=== PATIENT | male | born 1990 | race Caucasian/White ===

== ENCOUNTER 2016-07-26 21:33 | Emergency (ER) | payer SELFPAY ==
[~2016-07-26] VITALS: Ht 188 cm; Wt 123.7 kg
[2016-07-26 21:38] VITALS: Ht 188 cm; Wt 123.7 kg
--- NOTE | 2016-07-26 21:57 | EMERGENCY ROOM VISIT NOTE ---
ED Visit Note First contact with patient: 21:45 CHIEF COMPLAINT: Tick bite HISTORY OF PRESENT ILLNESS: This 26-year-old male patient presents to the emergency department ambulatory after they noticed a tick embedded in the left thigh today. The patient did try to remove it. He believes that some of it is still in his leg. It had been on for a couple days. The patient was in the [place] recently. The patient denies any rashes, fevers, chills, or lightheadedness. The patient denies joint tenderness. REVIEW OF SYSTEMS: A 6 system review of systems was completed with positives and pertinent negatives listed in the HPI. ALLERGIES: No known drug allergies MEDICATIONS: None PMH: None SOCIAL HISTORY: The patient lives locally PHYSICAL EXAM: Vital Signs: Reviewed Nurse's notes, vital signs stable. GENERAL : This is a 26-year-old male, in no acute distress, well-developed, well- nourished. SKIN: There is no tick present. There is a small zone of inflammation and ecchymosis around the spot where the tick was. The patient does have multiple small pustules with erythema over the extremities which he states is not new for him. He states that this was present long before the tick. NEUROLOGICAL: Alert and oriented to person place and time, cooperative. Sensory and motor functions grossly intact. ED COURSE: I examined the patient. The tick was already gone. I did not note any tick parts. The patient was given doxycycline 200 mg p.o. for prophylaxis. The patient does have a rash to the lower extremities which has the appearance of possible flea bites or bug bites. The patient states that those lesions have been there for quite some time and are not new for him. The patient was discharged home in good condition. DISCHARGE INSTRUCTIONS & TREATMENT: Watch the area for signs of infection. Keep bacitracin on it for 2 days. Follow up with family doctor if he develops symptoms of a target rash, fever, chills, lightheadedness, or joint pain. Problem List Medical Problems: (1) Broken tooth Status: Resolved (2) Dentalgia Status: Resolved Current/Historical Medications No Active Prescriptions or Reported Meds Allergies Coded Allergies: No Known Allergies (Verified , 07/26/16) Vital Signs Date Time Temp Pulse Resp B/P Pulse Ox O2 Delivery O2 Flow Rate FiO2 07/26/16 21:38 37.0 74 18 136/85 98 Room Air Medications Administered Medications (Trade) Dose Ordered Sig/Micaela Route Start Time Stop Time Status Last Admin Dose Admin Doxycycline Hyclate (Vibramycin Cap) 200 mg ONE ONCE PO 07/26/16 22:00 07/26/16 22:01 DC 07/26/16 22:10 200 MG Departure Information Impression Primary Impression: Tick bite Dispostion Home / Self-Care Condition GOOD Prescriptions No Active Prescriptions or Reported Meds Referrals No Doctor, Assigned (PCP) Patient Instructions Bites Tick, ED Facts Tick, My [facility] Additional Instructions Watch the area for signs of infection. Keep bacitracin on it for 2 days. Follow up with family doctor if he develops symptoms of a target rash, fever, chills, lightheadedness, or joint pain.
[2016-07-26] MEDS ORDERED: DOXYCYCLINE HYCLATE 100 MG CAP PO ONE (22:00)
[2016-07-26 22:29] VITALS: BP 136/85; PULSE 74; TEMP 37; O2SAT 98
== END 2016-07-26 22:20 | disposition home or self-care (01) ==
LOC: C.EDB 21:35 → C.EDD 22:20
DX: S70.362A Insect bite (nonvenomous), left thigh, initial encounter (principal); W57.XXXA Bitten or stung by nonvenomous insect and other nonvenomous arthropods, initial encounter

== ENCOUNTER 2016-12-06 21:25 | Emergency (ER) | payer OTHER ==
[~2016-12-06] VITALS: Ht 185.4 cm; Wt 110.0 kg
[2016-12-06 21:36] VITALS: TEMP 37.1; Ht 185.4 cm; Wt 110.0 kg
[2016-12-06] MEDS ORDERED: ONDANSETRON INJ 2 MG/ML 2 ML VIAL IV STA (22:01)
[2016-12-06] MEDS ORDERED: DIPHTHERIA/TETANUS/PERTUSSIS 0.5 ML SYR/VIAL IM. ONE (22:15)
[2016-12-06] MEDS ORDERED: MoRPHine SULFATE 4 MG/ML 1 ML CARP\\VIAL IV ONE (22:15)
[2016-12-06] MEDS ORDERED: SODIUM CHLORIDE 0.9% 1000ML 1,000 ML IV ONE (22:15)
[2016-12-06] MEDS ORDERED: OPTIRAY 320 IV PRN (22:15)
[2016-12-06 22:37] LABS: BASO % 0.3 %; BASO ABS # 0.02 K/uL (0-0.2); COMPLETE YES; EOS % 1.8 %; HEMATOCRIT 44.7 % (42-52); IG% 0.1 %; LYMPH % 27.6 %; LYMPH ABS # 2.17 K/uL (1.2-3.4); MEAN CELL VOLUME 88.7 fL (80-100); MEAN CORPUSCULAR HEMOGLOBIN 30.2 pg (25-34); MEAN PLATELET VOLUME 10.1 fL (7.4-10.4); MONO % 11.3 %; NEUT % 58.9 %; PLATELET COUNT 265 K/uL (130-400); RED BLOOD COUNT 5.04 M/uL (4.7-6.1); WHITE BLOOD COUNT 7.85 K/uL (4.8-10.8)
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
[2016-12-06 22:48] LABS: PARTIAL THROMBOPLASTIN RATIO 1.2; PROTHROMBIN TIME (PATIENT) 10.8 SECONDS (9.0-12.0)
[2016-12-06 22:53] LABS: BUN/CREATININE RATIO 14.8 (10-20); CALCIUM 9.9 mg/dl (8.5-10.1); CREATININE 0.86 mg/dl (0.60-1.40); POTASSIUM 3.8 mmol/L (3.5-5.1)
[2016-12-06 22:56] LABS: ALB/GLOB RATIO 1.1 (0.9-2)
[2016-12-07] MEDS ORDERED: NORCO 5/325MG HOME PACK PO ONE (01:15)
[2016-12-07] MEDS ORDERED: HYDR-5688 PO (01:17)
[2016-12-07 01:31] VITALS: BP 123/85; PULSE 97; O2SAT 98
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
== END 2016-12-07 02:05 | disposition home or self-care (01) ==
LOC: C.EDB 21:27
DX: S89.92XA Unspecified injury of left lower leg, initial encounter (principal); V20.4XXA Motorcycle driver injured in collision with pedestrian or animal in traffic accident, initial encounter; Y92.488 Other paved roadways as the place of occurrence of the external cause

== ENCOUNTER 2017-08-09 08:51 | Emergency (ER) | payer OTHER ==
[~2017-08-09] VITALS: Ht 185.4 cm; Wt 125.1 kg
[2017-08-09 08:55] VITALS: TEMP 36.4; Ht 185.4 cm; Wt 125.1 kg
[2017-08-09] MEDS ORDERED: CIPROFLOXACIN HCL 0.3% OP SOLN 2.5 ML BTL OT STA (09:09)
[2017-08-09] MEDS ORDERED: CPROT OP (09:20)
[2017-08-09 09:27] VITALS: BP 129/89; PULSE 69; O2SAT 97
--- NOTE | 2017-08-09 15:10 | EMERGENCY ROOM VISIT NOTE ---
History First contact with patient: 08:59 Chief Complaint: EAR PAIN Stated Complaint: EAR SWOLLEN, CAN'T HEAR, PAIN ALL OVER History of Present Illness The patient is a 27 year old male who presents to the Emergency Room with complaints of left ear pain, swelling and decreased hearing acuity since Sunday. The patient denies any recent swimming, runny nose, congestion, sore throat, fever or chills. Patient does occasionally use Q-tips. He currently rates his discomfort a 6 out of 10. Review of Systems 10 system review was performed and was negative except for pertinent positives and negatives as indicated in history of present illness Past Medical/Surgical History Medical Problems: (1) Broken tooth (2) Dentalgia (3) No Known Active Medical Problems Family History FH: diabetes mellitus FH: hypertension FH: seizures Social History Smoking Status: Never Smoker Alcohol Use: occasionally Marital Status: in relationship Housing Status: lives with family Occupation Status: employed Current/Historical Medications Scheduled Ciprofloxacin-Hydrocortisone (Cipro Hc Otic), 3 DROPS OP BID Physical Exam Vital Signs Date Time Temp Pulse Resp B/P (MAP) Pulse Ox O2 Delivery O2 Flow Rate FiO2 08/09/17 09:27 69 18 129/89 97 08/09/17 08:55 36.4 73 20 131/94 98 Room Air Physical Exam CONSTITUTIONAL: Healthy and well nourished. Alert and oriented X 3 with positive affect. Patient does not appear in any acute distress. HEENT: Normocephalic, atraumatic. Pupils equal, round and reactive. No facial edema or erythema noted. Examination of the left ear shows diffuse external auditory canal erythema and edema. The TM is easily visible. Mild purulent drainage is noted. No obvious trauma noted. Right ear and nares are clear. OROPHARYNX: No posterior pharyngeal erythema, tonsillar hypertrophy, exudates or postnasal drip. NECK: Full active range of motion without discomfort. RESPIRATORY: Clear to auscultation bilaterally with no wheezing, crackles, rhonchi or stridor. CARDIOVASCULAR: Regular rate and rhythm with no murmurs, rubs or gallops. INTEGUMENTARY: No rash or other significant dermatologic conditions noted. NEUROLOGIC: No focal neurologic deficits noted. Medical Decision & Procedures Medications Administered Medications (Trade) Dose Ordered Sig/Micaela Route Start Time Stop Time Status Last Admin Dose Admin Ciprofloxacin HCl (Ciprofloxacin 0.3% Op Soln) 4 drops NOW STAT OT 08/09/17 09:09 08/09/17 09:10 DC 08/09/17 09:14 4 DROPS ED Course Patient history and physical exam were performed. Nurse's notes were reviewed. Vital signs were reviewed, showing an elevated blood pressure 131/94. Exam is consistent with otitis externa. The patient was dispensed Ciloxan suspension with instructions for use. The patient was provided a prescription for another bottle in case he runs out. The patient was instructed to return for any progressively worsening symptoms, otherwise follow up with his PCP if symptoms are not improving within the next week. The patient was happy with plan of care, voiced understanding of all discharge instructions, refused any analgesics while in the emergency department, and rated his discomfort a 3 out of 10 at the conclusion of my exam. Medical Decision Medication Reconcilliation Current Medication List: was personally reviewed by me Blood Pressure Screening Patient's blood pressure: Normal blood pressure Impression Primary Impression: Otitis externa, left Departure Information Dispostion Home / Self-Care Condition FAIR Prescriptions Ciprofloxacin-Hydrocortisone (CIPRO HC OTIC) 1 Minnie Minnie 3 DROPS OP BID, #1 BTL Prov: Janes Chowdary PA 08/09/17 Forms HOME CARE DOCUMENTATION FORM, IMPORTANT VISIT INFORMATION Patient Instructions [facility] Additional Instructions Administer ciprofloxacin 3-4 drops every 12 hours for 7 days. Ibuprofen 800 mg and/or Tylenol 1000 mg every 8 hours. You may also alternate these medications for more effective pain relief: Ibuprofen --4 HRS--> Tylenol --4 HRS--> ibuprofen --4 HRS--> Tylenol .... Return to the emergency department for any progressively worsening pain. Follow-up with your family doctor if you have lingering symptoms for more than 7 days. Problem Qualifiers Primary Impression: Otitis externa, left Otitis externa type: diffuse Chronicity: acute Qualified Codes: H60.312 - Diffuse otitis externa, left ear
== END 2017-08-09 09:28 | disposition home or self-care (01) ==
LOC: C.EDB 08:52 → C.EDA 09:28
DX: H60.312 Diffuse otitis externa, left ear (principal)

== ENCOUNTER 2017-10-29 13:59 | Observation (INO) | payer OTHER ==
[~2017-10-29] VITALS: Ht 185.4 cm; Wt 125.4 kg
[2017-10-29] MEDS ORDERED: SODIUM CHLORIDE 0.9% 1000ML 1,000 ML IV STA (14:27)
[2017-10-29] MEDS ORDERED: DiphenhydrAMINE HCL 50 MG/ML VIAL IV STA (14:31)
[2017-10-29] MEDS ORDERED: KETOROLAC TROMETHAMINE 30 MG/ML VIAL IV STA (14:31)
[2017-10-29] MEDS ORDERED: PROCHLORPERAZINE 5 MG/ML 2 ML VIAL IV STA (14:31)
[2017-10-29] MEDS ORDERED: OPTIRAY 320 IV PRN (14:45)
[2017-10-29 14:52] LABS: BASO % 0.3 %; BASO ABS # 0.02 K/uL (0-0.2); EOS % 3.6 %; EOS ABS # 0.28 K/uL (0-0.5); HEMATOCRIT 45.4 % (42-52); HEMOGLOBIN 15.4 g/dL (14.0-18.0); IG# 0.02 K/uL (0.00-0.02); LYMPH % 20.1 %; LYMPH ABS # 1.58 K/uL (1.2-3.4); MEAN CELL VOLUME 88.2 fL (80-100); MEAN CORPUSCULAR HEMOGLOBIN 29.9 pg (25-34); MEAN CORPUSCULAR HGB CONC 33.9 g/dl (32-36); MEAN PLATELET VOLUME 9.5 fL (7.4-10.4); MONO % 6.8 %; MONO ABS # 0.53 K/uL (0.11-0.59); NEUT % 68.9 %; NEUT ABS # 5.42 K/uL (1.4-6.5); PLATELET COUNT 254 K/uL (130-400); RED CELL DISTRIBUTION WIDTH CV 12.4 % (11.5-14.5); RED CELL DISTRIBUTION WIDTH SD 39.8 fL (36.4-46.3); WHITE BLOOD COUNT 7.85 K/uL (4.8-10.8)
[2017-10-29 15:01] LABS: PTT PATIENT 27.8 SECONDS (21.0-31.0)
--- NOTE | 2017-10-29 15:17 | DIAGNOSTIC IMAGING REPORT ---
CHEST ONE VIEW PORTABLE CLINICAL HISTORY: EVALUATE ALTERED MENTAL STATUS/WEAKNESS dyspnea COMPARISON STUDY: 12/06/2016 FINDINGS: The bones soft tissues and hemidiaphragms are normal. The cardiomediastinal silhouette is normal. The lungs are clear. The pulmonary vasculature is normal. IMPRESSION: Negative chest. The above report was generated using voice recognition software. It may contain grammatical, syntax or spelling errors. Electronically signed by: Cesar Lr M.D. 10/29/2017 3:16 PM Dictated Date/Time: 10/29/2017 3:15 PM
[2017-10-29 15:18] LABS: ALBUMIN 4.2 gm/dl (3.4-5.0); ALKALINE PHOSPHATASE 85 U/L (45-117); ALT/SGPT 37 U/L (12-78); AST/SGOT 16 U/L (15-37); BLOOD UREA NITROGEN 16 mg/dl (7-18); CALCIUM 9.3 mg/dl (8.5-10.1); CARBON DIOXIDE 27 mmol/L (21-32); CKMB < 1.0 ng/ml (0.5-3.6); CREATININE 0.82 mg/dl (0.60-1.40); GLUCOSE 93 mg/dl (70-99); POTASSIUM 4.1 mmol/L (3.5-5.1); SODIUM 139 mmol/L (136-145); TOTAL PROTEIN 8.4 gm/dl (6.4-8.2)
--- NOTE | 2017-10-29 16:42 | DIAGNOSTIC IMAGING REPORT ---
ANGIOGRAPHY HEAD COMBO CLINICAL HISTORY: 27 years-old Male presenting with syncope. TECHNIQUE: Multidetector CT angiography of the head was performed before and after the administration of intravenous contrast. 3-D volumetric and/or maximum intensity projection (MIP) images were subsequently reconstructed for review. IV contrast: 98 mL of Optiray 320. A dose lowering technique was used consistent with the principles of ALARA (as low as reasonably achievable). COMPARISON: Noncontrast CT head from 12/06/2016. CT DOSE (mGy.cm): The estimated cumulative dose is 1035.75 mGy.cm. FINDINGS: Resource Protection Specialist topogram: Unremarkable. NONCONTRAST CT HEAD: Ventricles and sulci normal in size. Brain parenchyma normal in appearance with preserved hunt-white differentiation. No mass effect or midline shift. No hemorrhage or acute territorial infarct. No extra-axial fluid collection. Polypoid mucosal thickening in the maxillary sinuses. Calvarium intact. CTA HEAD: Anterior circulation: Intracranial portions of the internal carotid arteries patent to the level of the termini. Anterior and middle cerebral arteries patent. Anterior communicating artery patent. Posterior circulation: Codominant vertebral arteries. Intradural portions of the vertebral arteries patent. Posterior inferior cerebellar arteries patent. Basilar artery patent. Anterior inferior cerebellar arteries poorly visualized. Superior cerebellar and posterior cerebral arteries patent. Hypoplastic right posterior communicating artery. Patent left posterior communicating artery. Dural venous sinuses: Grossly patent allowing for the phase of contrast. Other: Allowing for the phase of contrast, brain parenchyma within normal limits. IMPRESSION: 1. No acute intracranial pathology. 2. No evidence of aneurysm, focal vessel occlusion, or significant stenosis of the intracranial arteries. Electronically signed by: Gael Cooper M.D. 10/29/2017 4:41 PM Dictated Date/Time: 10/29/2017 4:33 PM
[2017-10-29] MEDS ORDERED: MAGNESIUM HYDROXIDE SUSP 30 ML UDC PO PRN (19:00)
[2017-10-29] MEDS ORDERED: ACETAMINOPHEN 325 MG TAB PO PRN (19:00)
[2017-10-29] MEDS ORDERED: ONDANSETRON INJ 2 MG/ML 2 ML VIAL IV PRN (19:00)
[2017-10-29] MEDS ORDERED: POLYETHYLENE (MIRALAX) 17 GM PACK PO PRN (19:00)
[2017-10-29] MEDS ORDERED: ALUMINUM/MAGNESIUM/SIMETH (MAALOX MAX) 30 ML UDC PO PRN (19:00)
[2017-10-29] MEDS ORDERED: KETOROLAC TROMETHAMINE 15 MG/ML VIAL IM PRN (19:30)
--- NOTE | 2017-10-29 19:37 | History and Physical ---
History & Physical Date & Time of Service: Oct 29, 2017 at 19:26 Chief Complaint: Syncope Primary Care Physician: No Doctor, Assigned History of Present Illness Source: patient, hospital records Mr. Leonardo is a 27 y/o male with PMHx of Migraines and Remote Seizures who presents to the ED due to LOC x 20 minutes today. Patient started a new job today. HPI is limited of the events as patient cannot recall them. 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 Per report, he was sitting at a table in a warm room doing paperwork. Co-workers found him slumped over and when they tried to wake him, he slid to the floor. EMS was called and per report the patient was unresponsive on their arrival and they estimate LOC x 20 minutes. Upon arrival to the ED, patient was lethargic but responsive and answering questions appropriately. Per patient, he notes he woke up with a mild headache and R sided numbness/tingling. He denies taking anything for this headache and went to work. After this event, he remembers waking up in the ambulance with a severe migraine. He states this feels like his normal migraines which are diffuse but more painful above the L eyebrow. He reports nausea, photophobia, and horizontal diplopia. After Compazine/Toradol/Benadryl he reports resolution of his migraine and numbness/tingling resolved. Currently he verbalizes no complaints. He reports having a syncopal episode in the past but states it was only for a short duration of time and not like today. He reports remote H/O seizures but denies any medications or being evaluated by a neurologist. States the last time he had one was possible 1-2 years ago. Never used anti- epileptics. He also denies no known H/O cardiac conditions or arrhythmias. Denies FMHx of arrhythmias or sudden cardiac . He denies illicit drug use. Past Medical/Surgical History 1. Migraines 2. Remote Seizures Family History FH: diabetes mellitus FH: hypertension FH: seizures Social History Smoking Status: Never Smoker Smokeless Tobacco Use: No Alcohol Use: socially Drug Use: none Marital Status: in relationship Housing status: lives alone Occupational Status: employed Allergies Coded Allergies: No Known Allergies (Verified , 10/29/17) Home Medications No Active Prescriptions or Reported Meds Review of Systems Constitutional: + problem reported (migraine headache), No fever, No chills Eyes: + problem reported (photophobia), No worsening of vision, No diplopia ENT: No nasal symptoms, No sore throat Respiratory: No cough, No shortness of breath Cardiovascular: No chest pain, No palpitations Abdomen: No pain, No nausea, No vomiting, No diarrhea, No constipation Musculoskeletal: No swelling, No calf pain Genitourinary - Male: No dysuria Neurologic: + numbness/tingling (R sided - resolved) Hematologic / Lymphatic: No abnormal bleeding/bruising Integumentary: + problem reported (sun burn), No rash Physical Exam Vital Signs Date Time Temp Pulse Resp B/P (MAP) Pulse Ox O2 Delivery O2 Flow Rate FiO2 10/29/17 18:56 81 16 98 Room Air 10/29/17 18:13 67 10/29/17 16:50 10/29/17 16:50 81 16 136/104 97 Room Air 84 138/93 87 154/80 10/29/17 14:56 81 16 142/89 97 Room Air 10/29/17 14:54 74 10/29/17 14:09 94 Room Air 10/29/17 14:09 76 20 137/93 94 Room Air General Appearance: WD/WN, no apparent distress Head: normocephalic, atraumatic Eyes: PERRL, sclerae normal, + pertinent finding (b/l horizontal nystagmus) ENT: hearing grossly normal Neck: supple, no JVD, trachea midline Respiratory/Chest: lungs clear, normal breath sounds, no respiratory distress, no accessory muscle use Cardiovascular: regular rate, rhythm, no gallop, no murmur Abdomen/GI: normal bowel sounds, non tender, soft Extremities/Musculoskelatal: no calf tenderness, no pedal edema Neurologic/Psych: alert, oriented x 3 Skin: normal color, + pertinent finding (mild sunburn to trunk and arms with mild peeling) Diagnostics Laboratory Results Results Past 24 Hours Test 10/29/17 14:06 10/29/17 14:40 10/29/17 17:00 Range/Units Bedside Glucose 93 70-99 mg/dl White Blood Count 7.85 4.8-10.8 K/uL Red Blood Count 5.15 4.7-6.1 M/uL Hemoglobin 15.4 14.0-18.0 g/dL Hematocrit 45.4 42-52 % Mean Corpuscular Volume 88.2 80-100 fL Mean Corpuscular Hemoglobin 29.9 25-34 pg Mean Corpuscular Hemoglobin Concent 33.9 32-36 g/dl Platelet Count 254 130-400 K/uL Mean Platelet Volume 9.5 7.4-10.4 fL Neutrophils (%) (Auto) 68.9 % Lymphocytes (%) (Auto) 20.1 % Monocytes (%) (Auto) 6.8 % Eosinophils (%) (Auto) 3.6 % Basophils (%) (Auto) 0.3 % Neutrophils # (Auto) 5.42 1.4-6.5 K/uL Lymphocytes # (Auto) 1.58 1.2-3.4 K/uL Monocytes # (Auto) 0.53 0.11-0.59 K/uL Eosinophils # (Auto) 0.28 0-0.5 K/uL Basophils # (Auto) 0.02 0-0.2 K/uL RDW Standard Deviation 39.8 36.4-46.3 fL RDW Coefficient of Variation 12.4 11.5-14.5 % Immature Granulocyte % (Auto) 0.3 % Immature Granulocyte # (Auto) 0.02 0.00-0.02 K/uL Prothrombin Time 10.0 9.0-12.0 SECONDS Prothromb Time International Ratio 1.0 0.9-1.1 Activated Partial Thromboplast Time 27.8 21.0-31.0 SECONDS Partial Thromboplastin Ratio 1.1 Sodium Level 139 136-145 mmol/L Potassium Level 4.1 3.5-5.1 mmol/L Chloride Level 105 98-107 mmol/L Carbon Dioxide Level 27 21-32 mmol/L Anion Gap 7.0 3-11 mmol/L Blood Urea Nitrogen 16 7-18 mg/dl Creatinine 0.82 0.60-1.40 mg/dl Est Creatinine Clear Calc Drug Dose 180.4 ml/min Estimated GFR () 138.5 Estimated GFR (Non- 119.5 BUN/Creatinine Ratio 19.2 10-20 Random Glucose 93 70-99 mg/dl Calcium Level 9.3 8.5-10.1 mg/dl Magnesium Level 2.2 1.8-2.4 mg/dl Total Bilirubin 0.3 0.2-1 mg/dl Direct Bilirubin < 0.1 0-0.2 mg/dl Aspartate Amino Transf (AST/SGOT) 16 15-37 U/L Alanine Aminotransferase (ALT/SGPT) 37 12-78 U/L Alkaline Phosphatase 85 45-117 U/L Total Creatine Kinase 81 39-308 U/L Creatine Kinase MB < 1.0 0.5-3.6 ng/ml Creatine Kinase MB Ratio 0-3.0 Troponin I < 0.015 0-0.045 ng/ml Total Protein 8.4 6.4-8.2 gm/dl Albumin 4.2 3.4-5.0 gm/dl Thyroid Stimulating Hormone (TSH) 0.695 0.300-4.500 uIu/ml Urine Color YELLOW Urine Appearance CLEAR CLEAR Urine pH 6.0 4.5-7.5 Urine Specific [place] 1.026 1.000-1.030 Urine Protein NEG NEG Urine Glucose (UA) NEG NEG Urine Ketones NEG NEG Urine Occult Blood NEG NEG Urine Nitrite NEG NEG Urine Bilirubin NEG NEG Urine Urobilinogen NEG NEG Urine Leukocyte Esterase NEG NEG Diagnostic Radiology ANGIOGRAPHY HEAD COMBO FINDINGS: Molder Bench topogram: Unremarkable. NONCONTRAST CT HEAD: Ventricles and sulci normal in size. Brain parenchyma normal in appearance with preserved hunt-white differentiation. No mass effect or midline shift. No hemorrhage or acute territorial infarct. No extra-axial fluid collection. Polypoid mucosal thickening in the maxillary sinuses. Calvarium intact. CTA HEAD: Anterior circulation: Intracranial portions of the internal carotid arteries patent to the level of the termini. Anterior and middle cerebral arteries patent. Anterior communicating artery patent. Posterior circulation: Codominant vertebral arteries. Intradural portions of the vertebral arteries patent. Posterior inferior cerebellar arteries patent. Basilar artery patent. Anterior inferior cerebellar arteries poorly visualized. Superior cerebellar and posterior cerebral arteries patent. Hypoplastic right posterior communicating artery. Patent left posterior communicating artery. Dural venous sinuses: Grossly patent allowing for the phase of contrast. Other: Allowing for the phase of contrast, brain parenchyma within normal limits. IMPRESSION: 1. No acute intracranial pathology. 2. No evidence of aneurysm, focal vessel occlusion, or significant stenosis of the intracranial arteries. CHEST ONE VIEW PORTABLE FINDINGS: The bones soft tissues and hemidiaphragms are normal. The cardiomediastinal silhouette is normal. The lungs are clear. The pulmonary vasculature is normal. IMPRESSION: Negative chest. EKG Normal sinus rhythm RSR' or QR pattern in V1 suggests right ventricular conduction delay Borderline ECG When compared with ECG of 31-JAN-2011 22:56, No significant change was found Confirmed by VINCE MARIE ([id number]) on 10/29/2017 3:19:24 PM Impression Assessment and Plan Mr. Leonardo is a 27 y/o male with PMHx of Migraines and Remote Seizures who presents to the ED due to LOC x 20 minutes today. Syncope and Collapse, Unknown Etiology: - Given report of unresponsiveness x 20 minutes seems rather unlikely - no good explaination for this as he is not post-ictal to suggest seizure, so far no arrythmias noted, labs are unremarkable; orthostatics negative - Since this occurred at rest a vasovagal episode would seem unlikely but possible - of course R/O arrhythmia will be the main concern - Will obtain urine drug screen to R/O cause - EKG with RSR/QR pattern in V1 which can be a normal variant and appears unchanged from an EKG in 2010 - Will obtain echocardiogram - Serial cardiac enzymes Migraine: RESOLVED - Currently migraine is resolved with treatment in ED - can continue Toradol PRN Seizures? - Seems to be rather remote but states he has never been seen by a neurologist and never required medication - maybe these remote issues were syncopal episodes ? DVT Prophylaxis: SCDs Code Status: FULL RESUSCITATION Disposition: Possible D/C tomorrow pending evaluation Resuscitation Status VTE Prophylaxis Will order VTE Prophylaxis: Yes History Patient seen and examined, chart reviewed, case discussed with JAGDISH Ortega and I agree with her assessment and plan as documented above. Briefly, patient is a 27yo male with history of childhood seizure, complex migraine presenting after episode of LOC for estimated 20 minutes while at work. Patient denies CP, palpitations, SOB or neurologic deficit preceding or following the event. History limited as patient does not recollect the episode. On physical exam he is afebrile, hemodynamically stable, NAD HEENT unremarkable Heart +S1/S2, regular, no m/r/g Lungs CTA Abdomen soft, NT/ND Ext warm, well perfused, no edema Neuro grossly intact Labs and images reviewed - unremarkable including CTA head. EKG with some concern for RSR' pattern, possible conduction delay Assessment/Plan: 27yo male with history of migraine, remote seizures presenting after episode of LOC for estimated 20 minutes. ?seizure vs syncope vs arrhythmia -Will place in observation on telemetry -Trend cardiac enzymes -Check 2D echo -Check orthostatic VS -Remainder of plan as above
[2017-10-29] MEDS ORDERED: IV FLUIDS COMPLETED PRN (19:45)
[2017-10-29] MEDS: SODIUM CHLORIDE 0.9% 1000ML 1,000 ML IV SCH (20:48)
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
[2017-10-29 22:10] VITALS: BP 137/85; PULSE 76; TEMP 36.3; O2SAT 98; Ht 185.4 cm; Wt 125.4 kg
[2017-10-29 23:59] VITALS: BP 134/84; PULSE 69; TEMP 36.5; O2SAT 96
[2017-10-30 04:44] VITALS: BP 105/69; PULSE 78; TEMP 36.4; O2SAT 97
[2017-10-30] MEDS: SODIUM CHLORIDE 0.9% 1000ML 1,000 ML IV SCH (06:22)
[2017-10-30 07:51] LABS: HEMATOCRIT 43.3 % (42-52); HEMOGLOBIN 14.5 g/dL (14.0-18.0); MEAN CORPUSCULAR HEMOGLOBIN 29.5 pg (25-34); MEAN CORPUSCULAR HGB CONC 33.5 g/dl (32-36); MEAN PLATELET VOLUME 9.5 fL (7.4-10.4); PLATELET COUNT 254 K/uL (130-400); RED CELL DISTRIBUTION WIDTH CV 12.5 % (11.5-14.5); RED CELL DISTRIBUTION WIDTH SD 39.9 fL (36.4-46.3); WHITE BLOOD COUNT 7.67 K/uL (4.8-10.8)
[2017-10-30 08:03] VITALS: O2SAT 97
[2017-10-30 08:09] VITALS: BP 153/80; PULSE 68; TEMP 36.4; O2SAT 97
[2017-10-30 08:16] LABS: CALCIUM 8.6 mg/dl (8.5-10.1); CREATININE 0.74 mg/dl (0.60-1.40); POTASSIUM 4.1 mmol/L (3.5-5.1)
--- NOTE | 2017-10-30 08:25 | ECHOCARDIOGRAM REPORT ---
*NOTICE TO RECEIVING [employer] This information is strictly Confidential and protected under [place] law. [place] law prohibits you from making any further disclosure of this information unless further disclosure is expressly permitted by the written consent of the person to whom it pertains or is authorized by law. A general authorization for the release of medical or other information is not sufficient for this purpose. Hospital accepts no responsibility if the information is made available to any other person, INCLUDING THE PATIENT. Interpretation Summary * Name: LINDA GAN Study Date: 10/30/2017 06:26 AM BP: 105/69 mmHg * Patient Location: [facility]\S\N289\S\2 HR: 71 * : 1990 (M/d/yyyy) Gender: Male Height: 73 in * Age: 27 yrs Ethnicity: [place] Weight: 264 lb * Ordering Physician: Yamileth Ortega * Referring Physician: Self, Referred * Performed By: Saray Nunez RCS * * Reason For Study: SYNCOPE * BSA: 2.4 m2 * -- Conclusions -- * Left ventricular systolic function is normal. * Normal diastolic function * Borderline left atrial enlargement. Procedure Details * A complete two-dimensional transthoracic echocardiogram was performed (2D, M-mode, Doppler and color flow Doppler). Left Ventricle * The left ventricle is normal in size. * There is normal left ventricular wall thickness. * Left ventricular systolic function is normal. * Ejection Fraction = 55-60%. * Normal diastolic function * The left ventricular wall motion is normal. Right Ventricle * The right ventricle is normal in size and function. Atria * Borderline left atrial enlargement. * Right atrial size is normal. Mitral Valve * The mitral valve is grossly normal. * Significant mitral regurgitation is absent. Tricuspid Valve * The tricuspid valve is not well visualized, but is grossly normal. * Significant tricuspid regurgitation is absent. Aortic Valve * The aortic valve is normal in structure and function. * The aortic valve is trileaflet. * No hemodynamically significant valvular aortic stenosis. * There is no significant aortic regurgitation. Pulmonic Valve * The pulmonic valve is not well visualized. Great Vessels * The aortic root is normal size. Pericardium/Pleural * There is no pericardial effusion. Great Vessels * Normal inferior vena cava diameter and respiratory variation suggests normal central venous pressure. MMode 2D Measurements and Calculations IVSd 1.6 cm IVSs 1.6 cm LVIDd 5.0 cm LVIDs 3.8 cm LVPWd 1.1 cm LVPWs 1.5 cm IVS/LVPW 1.4 FS 24.8 % EDV(Teich) 120.1 ml ESV(Teich) 61.3 ml EF(Teich) 48.9 % EDV(cubed) 127.5 ml ESV(cubed) 54.2 ml EF(cubed) 57.5 % % IVS thick 4.8 % % LVPW thick 35.6 % LV mass(C)d 271.5 grams LV mass(C)dI 112.1 grams/m\S\2 LV mass(C)s 228.2 grams LV mass(C)sI 94.2 grams/m\S\2 SV(Teich) 58.8 ml SI(Teich) 24.3 ml/m\S\2 SV(cubed) 73.4 ml SI(cubed) 30.3 ml/m\S\2 Ao root diam 2.9 cm Ao root area 6.8 cm\S\2 ACS 2.4 cm LA dimension 4.0 cm LA/Ao 1.3 LVOT diam 2.2 cm LVOT area 3.8 cm\S\2 Doppler Measurements and Calculations MV E max ok 82.0 cm/sec MV A max ok 71.2 cm/sec MV E/A 1.2 MV P1/2t max ok 81.1 cm/sec MV P1/2t 36.0 msec MVA(P1/2t) 6.1 cm\S\2 MV dec slope 659.4 cm/sec\S\2 MV dec time 0.25 sec Ao V2 max 76.2 cm/sec Ao max PG 2.3 mmHg Ao max PG (full) 0.77 mmHg RENE(V,A) 3.1 cm\S\2 RENE(V,D) 3.1 cm\S\2 LV V1 max PG 1.6 mmHg LV V1 max 62.3 cm/sec
--- NOTE | 2017-10-30 11:17 | Discharge Instructions ---
Discharge Instructions Date of Service Oct 30, 2017. Admission Reason for Admission: Syncope And Collapse Discharge Discharge Diagnosis / Problem: Passed Out Discharge Goals Goal(s): Decrease discomfort, Improve function, Increase independence Activity Recommendations Activity Limitations: resume your previous activity . Instructions / Follow-Up Instructions / Follow-Up Passed Out (Syncope): - You were admitted for the passing out episode. At this time nothing was found to explain this. You have a normal heart rhythm and no abnormal rhythm was found to explain you passing out. - You also had an ultrasound of the heart that shows that your heart is pumping and functioning the way it is supposed to. - This is unlikely that this was seizure related as they usually do not result in loss of consciousness for a long period of time without more complicating issues - This may have been triggered by your migraine? Some people can have vasovagal episodes -- This happens when your body drops your heart rate and blood pressure temporarily due to something triggering this. This is the same thing that happens when you here about people fainting when they see blood or people who pass out when on the toilet. This may have been triggered by your headache, hot environment, dehydration.... - You may benefit from an Event Monitor - this is a monitor that will watch your heart and you can were this up to a month. This way if an abnormal heart rhythm is present it may capture it even though at this point we have not seen this. - You were set up with a family doctor to get established. They may want to consider further testing but it is always good to have a doctor even when you are healthy to have routine screenings completed. Follow-Up: Please, follow up at [facility] with Dr. Sarahi Mcadams on November 08 at 4:00 pm (arrive 3:45 pm). *This office is located at [address] in [place]. If you need to change this appointment, call the office at [phone]." Current Hospital Diet Patient's current hospital diet: Regular Diet Discharge Diet Recommended Diet: Regular Diet Pending Studies Studies pending at discharge: no Medical Emergencies . Who to Call and When: Medical Emergencies: If at any time you feel your situation is an emergency, please call 911 immediately. . Non-Emergent Contact Non-Emergency issues call your: Primary Care Provider Call Non-Emergent contact if: you have a fever, your pain is concerning you, you have any medication questions . . "Provider Documentation" section prepared by Yamileth Ortega. .
[2017-10-30 12:22] VITALS: BP_SYST 132; BP_SYST 148; BP_SYST 149; BP_DIAS 84; BP_DIAS 98; PULSE 80; PULSE 84; TEMP 36.8; O2SAT 96
[2017-10-30 15:14] VITALS: BP 183/97; PULSE 70; TEMP 36.7; O2SAT 97
[2017-10-30 15:38] VITALS: BP 183/97; PULSE 70; TEMP 36.7; O2SAT 97
--- NOTE | 2017-10-30 17:39 | Discharge Summary ---
Discharge Summary Date of Service Oct 30, 2017. Discharge Summary Admission Date: Oct 29, 2017 at 19:10 Discharge Date: Oct 30, 2017 Discharge Disposition: Home Principal Diagnosis: Syncope and Collapse Problems/Secondary Diagnoses: 1. Migraines 2. Remote Seizures? Procedures: ANGIOGRAPHY HEAD COMBO FINDINGS: Landscape Manager topogram: Unremarkable. NONCONTRAST CT HEAD: Ventricles and sulci normal in size. Brain parenchyma normal in appearance with preserved hunt-white differentiation. No mass effect or midline shift. No hemorrhage or acute territorial infarct. No extra-axial fluid collection. Polypoid mucosal thickening in the maxillary sinuses. Calvarium intact. CTA HEAD: Anterior circulation: Intracranial portions of the internal carotid arteries patent to the level of the termini. Anterior and middle cerebral arteries patent. Anterior communicating artery patent. Posterior circulation: Codominant vertebral arteries. Intradural portions of the vertebral arteries patent. Posterior inferior cerebellar arteries patent. Basilar artery patent. Anterior inferior cerebellar arteries poorly visualized. Superior cerebellar and posterior cerebral arteries patent. Hypoplastic right posterior communicating artery. Patent left posterior communicating artery. Dural venous sinuses: Grossly patent allowing for the phase of contrast. Other: Allowing for the phase of contrast, brain parenchyma within normal limits. IMPRESSION: 1. No acute intracranial pathology. 2. No evidence of aneurysm, focal vessel occlusion, or significant stenosis of the intracranial arteries. ECHOCARDIOGRAM -- Conclusions -- * Left ventricular systolic function is normal. EF 55-60% * Normal diastolic function * Borderline left atrial enlargement. Medication Reconciliation Medication Profile: No Active Prescriptions or Reported Meds Discharge Exam REVIEW OF SYSTEMS Constitutional: + problem reported (mild headache), No fever, No chills Eyes: No worsening of vision, No diplopia ENT: No nasal symptoms, No sore throat Respiratory: No cough, No shortness of breath Cardiovascular: No chest pain, No palpitations Abdomen: No pain, No nausea, No vomiting, No diarrhea, No constipation Musculoskeletal: No swelling, No calf pain Genitourinary - Male: No dysuria Neurologic: No numbness/tingling Hematologic / Lymphatic: No abnormal bleeding/bruising Integumentary: + problem reported (sun burn), No rash PHYSICAL EXAM General Appearance: WD/WN, no apparent distress Head: normocephalic, atraumatic Eyes: PERRL, sclerae normal, + pertinent finding (b/l horizontal nystagmus) ENT: hearing grossly normal Neck: supple, no JVD, trachea midline Respiratory/Chest: lungs clear, normal breath sounds, no respiratory distress, no accessory muscle use Cardiovascular: regular rate, rhythm, no gallop, no murmur Abdomen/GI: normal bowel sounds, non tender, soft Extremities/Musculoskelatal: no calf tenderness, no pedal edema Neurologic/Psych: alert, oriented x 3 Skin: normal color, + pertinent finding (mild sunburn to trunk and arms with mild peeling) Hospital Course ADMISSION: Mr. Leonardo is a 27 y/o male with PMHx of Migraines and Remote Seizures who presents to the ED due to LOC x 20 minutes today. Patient started a new job today. HPI is limited as patient cannot recall the events of this episode. 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 Per report, he was sitting at a table in a warm room doing paperwork. Co-workers found him slumped over and when they tried to wake him, he slid to the floor. EMS was called and per report the patient was unresponsive on their arrival and they estimate LOC x 20 minutes. Upon arrival to the ED, patient was lethargic but responsive and answering questions appropriately. Per patient, he notes he woke up with a mild headache and R sided numbness/tingling in the AM. He denies taking anything for this headache and went to work. After this event, he remembers waking up in the ambulance with a severe migraine. He states this feels like his normal migraines which are diffuse but more painful above the L eyebrow. He reports nausea, photophobia, and horizontal diplopia. After Compazine/Toradol/Benadryl he reports resolution of his migraine and numbness/tingling resolved. Currently he verbalizes no complaints. He reports having a syncopal episode in the past but states it was only for a short duration of time and not like today. He reports remote H/O seizures but denies any medications or being evaluated by a neurologist. States the last time he had one was possibly 1-2 years ago. Never used anti-epileptics. He also denies known H/O cardiac conditions or arrhythmias. Denies FMHx of arrhythmias or sudden cardiac . He denies illicit drug use. HOSPITAL COURSE: Syncope and Collapse, Unknown Etiology: - Given report of unresponsiveness x 20 minutes seems rather unlikely - no good explanation for this as he is not post-ictal to suggest seizure, so far no arrhythmias noted, labs are unremarkable; orthostatics negative - Since this occurred at rest a vasovagal episode would seem unlikely but possible - maybe triggered by his migraine, warm room, dehydration as possible trigger for vasovagal? - Urine drug screen negative - EKG with RSR/QR pattern in V1 which can be a normal variant and appears unchanged from an EKG in 2011 - repeat EKG prior to D/C without RSR/QR pattern - Echocardiogram unremarkable; negative serial cardiac enzymes Migraine: RESOLVED Seizures? - Seems to be rather remote but states he has never been seen by a neurologist and never required medication - maybe these remote issues were syncopal episodes ? Disposition: PCP established for F/U and routine medical management Total Time Spent: Greater than 30 minutes This includes examination of the patient, discharge planning, medication reconciliation, and communication with other providers. Discharge Instructions Please refer to the electronic Patient Visit Report (Discharge Instructions) for additional information. Additional Copies To Sarahi Mcadams M.D.
== END 2017-10-30 16:28 | disposition home or self-care (01) ==
LOC: EDBD 13:59 → C.EDD 14:00 → C.MED 19:10 → ENRESERV 19:59
PROVIDERS: ADMIT Internal Medicine; ATTEND Internal Medicine
DX: R55 Syncope and collapse (principal); G43.909 Migraine, unspecified, not intractable, without status migrainosus

== ENCOUNTER 2023-08-10 21:45 | Observation (INO) ==
--- NOTE | 2023-08-10 22:10 | Emergency Department Note ---
Impression & Plan Stroke-like symptoms, Vertigo, Headache ED Provider Note NAME: LINDA GAN AGE: 33 SEX: M : 1990 ARRIVES VIA: Walk-In INFORMANT: Patient, ED PROVIDER(S): Phillip Callahan DO CHIEF COMPLAINT: Vertigo HPI: The patient is a 33-year-old male who has a remote history of seizure who presented to the emergency department for an evaluation of vertigo. The patient states approximately 7 PM this evening while he was at work he had acute onset of diaphoresis and not feeling well. He states he has a "pounding headache "as well as a feeling of room spinning. He is having trouble ambulating and keeping his eyes open. He states he has generalized weakness and feels though his arms and legs are very heavy. The patient denies having any recent trauma. He denies having any chest pain or difficulty breathing. The patient came to the emergency department for further evaluation. ROS: See above HPI for pertinent positives & negatives. A total of 10 systems reviewed and were otherwise negative. PAST MEDICAL HISTORY: See Below PAST SURGICAL HISTORY: See Below FAMILY HISTORY: See Below SOCIAL HISTORY: See Below HOME MEDICATIONS: See Below ALLERGIES: See Below VITALS: See Below PHYSICAL EXAMINATION: GENERAL: The patient is awake and alert. He is very anxious. EYES: The conjunctivae are clear. The pupils are round and reactive. There is no nystagmus elicited. EARS, NOSE, MOUTH AND THROAT: The nose is without any evidence of any deformity. NECK: The neck is nontender and supple. RESPIRATORY: Normal respiratory effort is noted there is no evidence of wheezing rhonchi or rales CARDIOVASCULAR: Regular rate and rhythm noted there no murmurs rubs or gallops normal S1 normal S2. GASTROINTESTINAL: The abdomen is soft. Abdomen is nontender. MUSCULOSKELETAL/EXTREMITIES: There is no evidence of gross deformity full range of motion is noted in the hips and shoulders. SKIN: There is no obvious evidence of any rash. There are no petechiae, pallor or cyanosis noted. The skin was diaphoretic. NEUROLOGIC: Patient is awake alert and oriented x3. There is no drift but the patient allows both arms to drop to the bed quickly. The patient is able to hold each leg off the bed for just under 5 seconds. Supervisor Pipe Finishing strength was diminished but symmetric. MEDICAL DECISION MAKING: The patient is a 33-year-old male who presented to the emergency department for dizziness. I was called to the room by the nursing staff they were concerned the patient may be having strokelike symptoms. He was discussing his condition with the nursing staff and was complaining of difficulty ambulating and dizziness. He also complained of a headache and was very diaphoretic. Ultimately the patient's neuroexam was not focal. His symptoms could be consistent with a headache syndrome. I discussed the patient's laboratory and radiographic studies with him. I discussed the patient's condition with the telestroke neurologist. He was evaluated by the telestroke neurologist but was not felt to be a candidate for TNK. The patient was treated for headache and was somewhat improved. The patient was evaluated by the [facility]. They have agreed to evaluate the patient for further management disposition Triage Nursing notes reviewed. Prior medical records reviewed Vital Signs: reviewed and remarkable for no significant abnormalities Differential diagnosis: Benign positional vertigo, dehydration, hypovolemia, anemia, tumor, infection, hypoglycemia, electrolyte abnormalities, cardiac sources, intracerebral event, toxicologic, neurologic, as well as other pathologies. ER treatment provided: See below Diagnostics interpreted by me: ECG: EKG was obtained in the emergency department. My interpretation is normal sinus rhythm at 69 bpm. Incomplete right bundle branch block pattern was noted. There is no ectopy. This was compared to a tracing from January 13, 2021. No changes were noted. Cardiac Monitoring: An order was placed for continuous cardiac monitoring. The monitor shows a rate of 58 bpm with sinus bradycardia. Laboratory studies: As stated above and show below. Imaging studies: See below. Radiographic imaging was reviewed by myself Consultation(s): I discussed this case with Dr. Jack who is on for the [facility] telestroke neurology group. I discussed this case with Dr. Kang who is on-call for the [facility] group. ED COURSE: Procedures: none Critical Care: I have personally spent greater than 35 minutes of critical care time in the direct management of this patient. This includes bedside care, interpretation of diagnostic studies, and testing, discussion with consultants, patient, and family members, and other required patient management activities. This 35 minutes is in excess of all separately billable procedures. Past Med/Surg History Problem List (Updated 08/11/23 @ 02:03 by Phillip Callahan DO) Headache (Acute) Vertigo (Acute) Stroke-like symptoms (Acute) Generalized weakness Infected pilonidal cyst GERD (gastroesophageal reflux disease) Encounter for physical examination related to employment Pain, dental Anxiety Epigastric pain Obesity Routine health maintenance Polydipsia TONYA (obstructive sleep apnea) Encounter for examination following treatment at hospital (Acute) Seizures (Chronic) Mild sleep apnea (Chronic) Migraine (Chronic) Insomnia (Chronic) Elevated serum globulin level (Chronic) Elevated blood protein (Chronic) See below. Daytime hypersomnolence (Chronic) Chronic migraine without aura (Chronic) BP (high blood pressure) (Chronic) Medical History Family history of hypertension Kidney stone Snoring Syncope Thrombosed external hemorrhoids Surgical History History of tonsillectomy History of oral surgery Tooth extraction Family History Grandfather Diabetes Uncle Diabetes Kidney stones Father Kidney stones Prostate cancer Stroke Aunt Breast cancer Mother Migraine headache Seizures Grandmother Seizures Family/Other Seizures Grandmother (Maternal) Diabetes Other Family history non-contributory Hypertension Denies family history of Ovarian cancer Myocardial infarction Colorectal cancer Social History Smoking Status: Never smoker Do You Dip or Chew Tobacco: Yes; Hx Alcohol Use: Yes Hx Substance Use: No Preferred Language: Wolof Communication Ability: Effective Shoe Stainer Required: No Beliefs That Will Affect Care: None marital status: Single Current Living Situation: Family Current Living Situation Comment: lives with son current occupational status: employed Other Information That Helps Us Care for You: No Feels Safe at Home: Yes Safety Concerns: Feels Safe At This Time Dental Care, Regularly: Yes Seatbelt Use: sometimes Assistive Devices: None Allergies Allergies Allergy/AdvReac Type Severity Reaction Status Date / Time No Known Allergies Allergy Verified 08/10/23 23:44 Home Meds Home Medications Medication Instructions Recorded Confirmed ibuprofen 200 mg tablet 400 - 600 mg PO DIRECTED PRN 08/10/23 08/10/23 Pain Results & Data (ED) Vital Signs Vital Signs - 24 hr 08/10/23 21:48 08/10/23 22:05 08/10/23 22:10 Temperature 36.9 C Temperature Source Oral Pulse Rate 73 89 Pulse Rate [Apical] 76 Pulse Rate from SpO2 Sensor Pulse Rhythm Regular Pulse Rhythm [Apical] Regular Pulse Strength Normal Pulse Strength [Apical] Normal Respiratory Rate 18 20 Respiratory Effort / Characteristics Non-Labored Spontaneous Non-Labored Spontaneous Respiratory Depth Normal Normal Respiratory Pattern Regular Regular Blood Pressure 145/102 H Blood Pressure [Right Arm] 174/105 H Blood Pressure Mean 116 Blood Pressure Mean [Right Arm] 128 Blood Pressure Position Sitting Blood Pressure Position [Right Arm] Semi-fowlers Pulse Oximetry 99 98 Oxygen Delivery Method Room Air Room Air Sepsis Recent Fever Within 48 Hours No Sepsis New/Unexplained Change in Mental Status N/A Sepsis Action Taken by Nursing No Action Required 08/10/23 22:21 08/10/23 22:30 08/10/23 22:45 Temperature Temperature Source Pulse Rate 90 80 70 Pulse Rate [Apical] Pulse Rate from SpO2 Sensor 72 Pulse Rhythm Pulse Rhythm [Apical] Pulse Strength Pulse Strength [Apical] Respiratory Rate 20 18 14 Respiratory Effort / Characteristics Respiratory Depth Respiratory Pattern Blood Pressure 155/97 H 151/103 H 142/93 H Blood Pressure [Right Arm] Blood Pressure Mean 116 119 109 Blood Pressure Mean [Right Arm] Blood Pressure Position Blood Pressure Position [Right Arm] Pulse Oximetry 98 100 96 Oxygen Delivery Method Room Air Sepsis Recent Fever Within 48 Hours Sepsis New/Unexplained Change in Mental Status Sepsis Action Taken by Nursing 08/10/23 23:00 08/10/23 23:15 08/10/23 23:30 Temperature Temperature Source Pulse Rate 70 66 60 Pulse Rate [Apical] Pulse Rate from SpO2 Sensor 70 68 60 Pulse Rhythm Pulse Rhythm [Apical] Pulse Strength Pulse Strength [Apical] Respiratory Rate 17 17 16 Respiratory Effort / Characteristics Respiratory Depth Respiratory Pattern Blood Pressure 128/90 129/79 135/77 Blood Pressure [Right Arm] Blood Pressure Mean 102 95 96 Blood Pressure Mean [Right Arm] Blood Pressure Position Blood Pressure Position [Right Arm] Pulse Oximetry 98 94 94 Oxygen Delivery Method Room Air Room Air Nasal Cannula Sepsis Recent Fever Within 48 Hours Sepsis New/Unexplained Change in Mental Status Sepsis Action Taken by Alf Medications Current Medication List: was personally reviewed by me Laboratory Data Attestation: I reviewed the patient's lab results. 08/10/23 20:01 08/10/23 20:01 Lab Results 08/10/23 08/10/23 08/10/23 Range/Units 20:01 21:58 22:06 WBC 10.61 (4.8-10.8) K/ul RBC 5.37 (4.70-6.10) M/uL Hgb 16.2 (14.0-18.0) g/dl POC Hgb 15.6 (14.0-18.0) g/dl Hct 46.6 (42.0-52.0) % POC Hct 46 (42-52) % MCV 86.8 (80.0-100.0) fL MCH 30.2 (25.0-34.0) pg MCHC 34.8 (32.0-36.0) g/dL RDW Std Deviation 38.5 (36.4-46.3) fL RDW Coeff of Jim 12.3 (11.5-14.5) % Plt Count 257 (130-400) K/uL MPV 9.5 (9.4-12.4) fL Immature Gran % (Auto) 0.3 % Neut % (Auto) 50.4 % Lymph % (Auto) 39.1 % [place] % (Auto) 8.6 % Eos % (Auto) 1.2 % Baso % (Auto) 0.4 % Neut # (Auto) 5.35 (1.40-6.50) K/uL Lymph # (Auto) 4.15 H (1.20-3.40) K/uL [place] # (Auto) 0.91 H (0.11-0.59) K/uL Eos # (Auto) 0.13 (0.00-0.50) K/uL Baso # (Auto) 0.04 (0.00-0.20) K/uL Immature Gran # (Auto) 0.03 (0.01-0.20) K/uL PT 10.1 (9.0-12.0) Seconds INR 0.9 (0.9-1.1) APTT 27 (21-31) Seconds PTT Ratio 1.0 POC Sodium 142 (135-144) mmol/L Sodium 140 (136-145) mmol/L POC Potassium 3.3 (3.3-5.0) mmol/L Potassium 3.4 L (3.5-5.1) mmol/L POC Chloride 105 (101-112) mmol/L Chloride 105 (98-107) mmol/L Carbon Dioxide 26 (21-32) mmol/L POC Total CO2 25 (24-31) mmol/L Anion Gap 9 (3-11) POC Anion Gap 16.0 (16-25) mmol/L POC BUN 19 H (7-18) mg/dl BUN 18 (6-23) mg/dl Creatinine 1.03 (0.6-1.4) mg/dl POC Creatinine 1.0 (0.6-1.3) mg/dl Est Cr Clr Drug Dosing 147.8 ml/min Est GFR ( Amer) 108.6 ml/min Est GFR (Non-Af Amer) 93.7 ml/min BUN/Creatinine Ratio 17.5 (10-20) Glucose 74 (70-99(Fasting)) mg/dl POC Glucose 75 (70-99) mg/dl POC Glucose (other) 78 (70-99) mg/dl Calcium 9.4 (8.6-10.3) mg/dl POC Ioniz Calcium Amanad 1.17 (1.12-1.32) mmol/l Magnesium 2.2 (1.7-2.4) mg/dl Total Bilirubin 0.6 (0.2-1.0) mg/dl AST 18 (13-39) U/L ALT 23 (7-52) U/L Alkaline Phosphatase 59 (34-104) U/L Troponin I High Sens 3.5 (0-20) pg/ml Total Protein 7.5 (6.0-8.3) gm/dl Albumin 4.6 (3.4-5.0) gm/dl Globulin 2.9 (2.5-4.0) gm/dl Albumin/Globulin Ratio 1.6 (0.9-2) Administered Medications Discontinued Medications Promethazine HCl (Phenergan) 12.5 mg in 50.5 mls @ 202 mls/hr IV NOW STA Stop: 08/10/23 23:02 Last Infusion: 08/11/23 00:35 Dose: Infused Documented By: Admin: 08/10/23 23:00 Dose: 202 mls/hr Documented By: ARASH Ketorolac Tromethamine (Ketorolac Tromethamine 15 Mg/Ml Vial) 10 mg IV NOW ONE Stop: 08/10/23 22:49 Last Admin: 08/10/23 23:00 Dose: 10 mg Documented By: ARASH Imaging Data Attestation: I personally reviewed and interpreted this imaging study as follows: My Impression: CT of the brain was obtained in the emergency department. My interpretation is no intracranial hemorrhage or mass effect, final report below. 1 view chest x-ray was obtained in the emergency department. My interpretation is no free air or definite infiltrate, final report pending. Radiologist's Impression: Head CT 08/10/23 22:03 CR Exam(s): CT HEAD Without Contrast EXAM: CT Head Without Intravenous Contrast CLINICAL HISTORY: Reason for exam: neuro deficit, acute stroke suspected. TECHNIQUE: Axial computed tomography images of the head/brain without intravenous contrast. CTDI is 64.12 mGy and DLP is 1611.73 mGy-cm. Automated exposure control was utilized for the study. A dose lowering technique was utilized adhering to the principles of ALARA. COMPARISON: No relevant prior studies available. FINDINGS: Brain: Unremarkable. No hemorrhage. No significant white matter disease. No edema. Ventricles: Unremarkable. No ventriculomegaly. Bones/joints: Unremarkable. No acute fracture. Soft tissues: Unremarkable. Sinuses: Unremarkable as visualized. No acute sinusitis. Mastoid air cells: Unremarkable as visualized. No mastoid effusion. IMPRESSION: Normal head/brain CT. Communications: Call Doctor Stroke Electronically signed by: Baljit Kohli MD 08/10/23 22:33 PM Head CTA 08/10/23 22:03 CR Exam(s): CTA HEAD With Contrast IV Amt: 117ml optiray 320 EXAM: CT Angiography Head With Intravenous Contrast CLINICAL HISTORY: Reason for exam: neuro deficit, acute stroke suspected. TECHNIQUE: Axial computed tomographic angiography images of the head with intravenous contrast. CTDI is 64.12 mGy and DLP is 1611.73 mGy-cm. Automated exposure control was utilized for the study. A dose lowering technique was utilized adhering to the principles of ALARA. MIP reconstructed images were created and reviewed. CONTRAST: Patient received 117ml optiray 320 of IV contrast COMPARISON: No relevant prior studies available. FINDINGS: Right internal carotid artery: No acute findings. Intracranial segment is patent with no significant stenosis. No aneurysm. Right anterior cerebral artery: Unremarkable. No occlusion or significant stenosis. No aneurysm. Right middle cerebral artery: Unremarkable. No occlusion or significant stenosis. No aneurysm. Right posterior cerebral artery: Unremarkable. No occlusion or significant stenosis. No aneurysm. Right vertebral artery: Unremarkable as visualized. Left internal carotid artery: No acute findings. Intracranial segment is patent with no significant stenosis. No aneurysm. Left anterior cerebral artery: Unremarkable. No occlusion or significant stenosis. No aneurysm. Left middle cerebral artery: Unremarkable. No occlusion or significant stenosis. No aneurysm. Left posterior cerebral artery: Unremarkable. No occlusion or significant stenosis. No aneurysm. Left vertebral artery: Unremarkable as visualized. Basilar artery: Unremarkable. No occlusion or significant stenosis. No aneurysm. IMPRESSION: Normal head CTA. Communications: 08/10/23 22:39 Call Doctor Regarding Stroke, called Dr. Callahan on 08/09 22: 40 (-04:00) Electronically signed by: Baljit Kohli MD 08/10/23 22:38 PM Neck CTA 08/10/23 22:03 CR Exam(s): CTA NECK With Contrast IV Amt: 117ml optiray 320 EXAM: CT Angiography Neck With Intravenous Contrast CLINICAL HISTORY: Reason for exam: neuro deficit, acute stroke suspected. TECHNIQUE: Routine carotid CT angiography protocol was performed with intravenous contrast. NASCET criteria using the distal ICAs for comparison were used for evaluation of stenoses. CTDI is 64.12 mGy and DLP is 1611.73 mGy-cm. Automated exposure control was utilized for the study. A dose lowering technique was utilized adhering to the principles of ALARA. MIP reconstructed images were created and reviewed. CONTRAST: Patient received 117ml optiray 320 of IV contrast COMPARISON: None. FINDINGS: VASCULATURE: Right common carotid artery: Unremarkable. No occlusion or significant stenosis. No dissection. Right internal carotid artery: Unremarkable. Extracranial segment is patent with no occlusion or significant stenosis. No dissection. Right external carotid artery: Unremarkable. No occlusion. Right vertebral artery: Unremarkable. No occlusion or significant stenosis. No dissection. Left common carotid artery: Unremarkable. No occlusion or significant stenosis. No dissection. Left internal carotid artery: Left internal carotid has a tortuous course in the neck. Extracranial segment is patent with no occlusion or significant stenosis. No dissection. Left external carotid artery: Unremarkable. No occlusion. Left vertebral artery: Unremarkable. No occlusion or significant stenosis. No dissection. NECK: Bones/joints: Unremarkable. No acute fracture. Soft tissues: Unremarkable. Sinuses: Mucous retention cysts are seen in the maxillary sinuses. Lung apices: Clear. CAROTID STENOSIS REFERENCE USING NASCET CRITERIA: % ICA stenosis = (1 - narrowest ICA diameter/diameter of distal cervical ICA) x 100. Mild - <50% stenosis. Moderate - 50-69% stenosis. Severe - 70-94% stenosis. Near occlusion - 95-99% stenosis. Occluded - 100% stenosis. IMPRESSION: No evidence of hemodynamically significant carotid stenosis. Communications: Call Doctor Stroke Electronically signed by: Baljit Kohli MD 08/10/23 22:41 PM Discharge Plan Visit Data Chief Complaint: TIA Symptoms Stated Complaint: DIZZINESS, CONSTANT SWEATING, VISUAL DIST/HEADACHE ED Provider: Phillip Callahan Discharge Problem: Stroke-like symptoms, Vertigo, Headache Patient Disposition: Admitted As Inpatient Discharge Instructions Interventions: ED Discharge Assessment Last Done: 08/11/23 00:44 Discharge Problem: Headache Qualifiers: Headache type: unspecified Headache chronicity pattern: unspecified pattern I ntractability: not intractable Qualified Code(s): R51.9 - Headache, unspecified
[2023-08-10 22:19] LABS: iSTAT Hemoglobin 15.6 g/dl (14.0-18.0); iSTAT Ionized Calcium 1.17 mmol/l (1.12-1.32); iSTAT Potassium 3.3 mmol/L (3.3-5.0)
[2023-08-10 22:32] LABS: Basophils # (auto) 0.04 K/uL (0.00-0.20); Basophils % (auto) 0.4 %; Eosinophils # (auto) 0.13 K/uL (0.00-0.50); Eosinophils % (auto) 1.2 %; Hematocrit (blood only) 46.6 % (42.0-52.0); Hemoglobin 16.2 g/dl (14.0-18.0); Immature Granulocytes # (auto) 0.03 K/uL (0.01-0.20); Immature Granulocytes % (auto) 0.3 %; Lymphocytes # (auto) 4.15 K/uL (1.20-3.40); Lymphocytes % (auto) 39.1 %; Mean Corpuscular Hemoglobin 30.2 pg (25.0-34.0); Mean Corpuscular Hgb Conc 34.8 g/dL (32.0-36.0); Mean Corpuscular Volume 86.8 fL (80.0-100.0); Mean Platelet Volume 9.5 fL (9.4-12.4); Monocytes # (auto) 0.91 K/uL (0.11-0.59); Monocytes % (auto) 8.6 %; Neutrophils # (auto) 5.35 K/uL (1.40-6.50); Neutrophils % (auto) 50.4 %; Platelet Count 257 K/uL (130-400); RDW Coefficient of Variation 12.3 % (11.5-14.5); RDW Standard Deviation 38.5 fL (36.4-46.3); Red Blood Count 5.37 M/uL (4.70-6.10); White Blood Count 10.61 K/ul (4.8-10.8)
--- NOTE | 2023-08-10 22:34 | CT Scan Report ---
Exam(s): CT HEAD Without Contrast EXAM: CT Head Without Intravenous Contrast CLINICAL HISTORY: Reason for exam: neuro deficit, acute stroke suspected. TECHNIQUE: Axial computed tomography images of the head/brain without intravenous contrast. CTDI is 64.12 mGy and DLP is 1611.73 mGy-cm. Automated exposure control was utilized for the study. A dose lowering technique was utilized adhering to the principles of ALARA. COMPARISON: No relevant prior studies available. FINDINGS: Brain: Unremarkable. No hemorrhage. No significant white matter disease. No edema. Ventricles: Unremarkable. No ventriculomegaly. Bones/joints: Unremarkable. No acute fracture. Soft tissues: Unremarkable. Sinuses: Unremarkable as visualized. No acute sinusitis. Mastoid air cells: Unremarkable as visualized. No mastoid effusion. IMPRESSION: Normal head/brain CT. Communications: Call Doctor Stroke Electronically signed by: Baljit Kohli MD 08/10/23 22:33 PM
--- NOTE | 2023-08-10 22:39 | CT Scan Report ---
Exam(s): CTA HEAD With Contrast IV Amt: 117ml optiray 320 EXAM: CT Angiography Head With Intravenous Contrast CLINICAL HISTORY: Reason for exam: neuro deficit, acute stroke suspected. TECHNIQUE: Axial computed tomographic angiography images of the head with intravenous contrast. CTDI is 64.12 mGy and DLP is 1611.73 mGy-cm. Automated exposure control was utilized for the study. A dose lowering technique was utilized adhering to the principles of ALARA. MIP reconstructed images were created and reviewed. CONTRAST: Patient received 117ml optiray 320 of IV contrast COMPARISON: No relevant prior studies available. FINDINGS: Right internal carotid artery: No acute findings. Intracranial segment is patent with no significant stenosis. No aneurysm. Right anterior cerebral artery: Unremarkable. No occlusion or significant stenosis. No aneurysm. Right middle cerebral artery: Unremarkable. No occlusion or significant stenosis. No aneurysm. Right posterior cerebral artery: Unremarkable. No occlusion or significant stenosis. No aneurysm. Right vertebral artery: Unremarkable as visualized. Left internal carotid artery: No acute findings. Intracranial segment is patent with no significant stenosis. No aneurysm. Left anterior cerebral artery: Unremarkable. No occlusion or significant stenosis. No aneurysm. Left middle cerebral artery: Unremarkable. No occlusion or significant stenosis. No aneurysm. Left posterior cerebral artery: Unremarkable. No occlusion or significant stenosis. No aneurysm. Left vertebral artery: Unremarkable as visualized. Basilar artery: Unremarkable. No occlusion or significant stenosis. No aneurysm. IMPRESSION: Normal head CTA. Communications: 08/10/23 22:39 Call Doctor Regarding Stroke, called Dr. Callahan on 08/09 22: 40 (-04:00) Electronically signed by: Baljit Kohli MD 08/10/23 22:38 PM
--- NOTE | 2023-08-10 22:43 | CT Scan Report ---
Exam(s): CTA NECK With Contrast IV Amt: 117ml optiray 320 EXAM: CT Angiography Neck With Intravenous Contrast CLINICAL HISTORY: Reason for exam: neuro deficit, acute stroke suspected. TECHNIQUE: Routine carotid CT angiography protocol was performed with intravenous contrast. NASCET criteria using the distal ICAs for comparison were used for evaluation of stenoses. CTDI is 64.12 mGy and DLP is 1611.73 mGy-cm. Automated exposure control was utilized for the study. A dose lowering technique was utilized adhering to the principles of ALARA. MIP reconstructed images were created and reviewed. CONTRAST: Patient received 117ml optiray 320 of IV contrast COMPARISON: None. FINDINGS: VASCULATURE: Right common carotid artery: Unremarkable. No occlusion or significant stenosis. No dissection. Right internal carotid artery: Unremarkable. Extracranial segment is patent with no occlusion or significant stenosis. No dissection. Right external carotid artery: Unremarkable. No occlusion. Right vertebral artery: Unremarkable. No occlusion or significant stenosis. No dissection. Left common carotid artery: Unremarkable. No occlusion or significant stenosis. No dissection. Left internal carotid artery: Left internal carotid has a tortuous course in the neck. Extracranial segment is patent with no occlusion or significant stenosis. No dissection. Left external carotid artery: Unremarkable. No occlusion. Left vertebral artery: Unremarkable. No occlusion or significant stenosis. No dissection. NECK: Bones/joints: Unremarkable. No acute fracture. Soft tissues: Unremarkable. Sinuses: Mucous retention cysts are seen in the maxillary sinuses. Lung apices: Clear. CAROTID STENOSIS REFERENCE USING NASCET CRITERIA: % ICA stenosis = (1 - narrowest ICA diameter/diameter of distal cervical ICA) x 100. Mild - <50% stenosis. Moderate - 50-69% stenosis. Severe - 70-94% stenosis. Near occlusion - 95-99% stenosis. Occluded - 100% stenosis. IMPRESSION: No evidence of hemodynamically significant carotid stenosis. Communications: Call Doctor Stroke Electronically signed by: Baljit Kohli MD 08/10/23 22:41 PM
[2023-08-10 22:50] LABS: Albumin Globulin Ratio 1.6 (0.9-2); Albumin Level 4.6 gm/dl (3.4-5.0); BUN Creatinine Ratio 17.5 (10-20); Bilirubin,Total 0.6 mg/dl (0.2-1.0); Calcium 9.4 mg/dl (8.6-10.3); Creatinine Clr Calc Pharmacy 147.8 ml/min; Est GFR (African American) 108.6 ml/min; Est GFR (Non-African American) 93.7 ml/min; Globulin 2.9 gm/dl (2.5-4.0); Magnesium 2.2 mg/dl (1.7-2.4); Potassium 3.4 mmol/L (3.5-5.1); Total Protein 7.5 gm/dl (6.0-8.3)
[2023-08-10 22:56] LABS: Troponin I High Sensitivity 3.5 pg/ml (0-20)
[2023-08-10] MEDS: PROMETHAZINE 12.5 MG/50.5 ML BAG IV STA (23:00)
[2023-08-10] MEDS: KETOROLAC TROMETHAMINE 15 MG/ML VIAL IV ONE (23:00)
[2023-08-10 23:38] LABS: INR 0.9 (0.9-1.1); Partial Thromboplastin Time 27 Seconds (21-31); Prothrombin Time 10.1 Seconds (9.0-12.0)
--- NOTE | 2023-08-10 23:51 | History & Physical Report ---
Date of Service August 10, 2023 Assessment & Plan (1) Generalized weakness: (2) Fatigue: (3) Headache: (4) Common migraine without aura: Plan Generalized weakness, fatigue, numb sensation and headache- Patient was evaluated in the emergency department as a stroke alert CT scan head without contrast was negative CTA head and neck was negative On laboratories patient was found to be mildly hypoglycemic with blood sugar of 74 Mildly hypokalemic with a potassium of 3.4 and a magnesium level of 2.2 No loss of bowel or bladder control, and no confusion afterwards to suggest a seizure disorder Patient does have a known history of migraine with aura, and question whether this may be a complicated migraine Ordering MRI of brain without contrast Stroke without TNK order set The patient will be admitted to telemetry for serial cardiac enzymes, serial EKG's, cardiac rhythm monitoring and a 2-D echocardiogram with Dopplers. D5 normal saline with potassium chloride 20 mEq at 100 mL/h x 1 L Check a hemoglobin A1c and fasting the panel in the a.m. Check a renal function panel and magnesium level in the a.m. 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 Primary Care Provider: Sarahi Mcadams MD The patient is a 33-year-old male with a past medical history including GERD, anxiety, obesity, TONYA, seizure disorder, migraines, daytime hypersomnolence and chronic migraine without aura. 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 While in the emergency department, the patient appeared very lethargic, his conversation was slow, and find it difficult to keep his eyes open, complaining of a significant generalized headache. He denies any focal weakness or legs, reported he felt numb and weak all over. He denies any recent travels or sick exposures. He has never had anything last this length of time in the past Allergies Allergy/AdvReac Type Severity Reaction Status Date / Time No Known Allergies Allergy Verified 08/10/23 23:44 Home Medications Medication Instructions Recorded Confirmed Type ibuprofen 200 mg tablet 400 - 600 mg PO DIRECTED PRN 08/10/23 08/10/23 History Pain Past Med/Surg History Problem List (Updated 08/11/23 @ 01:46 by Kory Kang MD) Generalized weakness Infected pilonidal cyst GERD (gastroesophageal reflux disease) Encounter for physical examination related to employment Pain, dental Anxiety Epigastric pain Obesity Routine health maintenance Polydipsia TONYA (obstructive sleep apnea) Encounter for examination following treatment at hospital (Acute) Seizures (Chronic) Mild sleep apnea (Chronic) Migraine (Chronic) Insomnia (Chronic) Elevated serum globulin level (Chronic) Elevated blood protein (Chronic) See below. Daytime hypersomnolence (Chronic) Chronic migraine without aura (Chronic) BP (high blood pressure) (Chronic) Medical History Family history of hypertension Kidney stone Snoring Syncope Thrombosed external hemorrhoids Surgical History History of tonsillectomy History of oral surgery Tooth extraction Family History Grandfather Diabetes Uncle Diabetes Kidney stones Father Kidney stones Prostate cancer Stroke Aunt Breast cancer Mother Migraine headache Seizures Grandmother Seizures Family/Other Seizures Grandmother (Maternal) Diabetes Other Family history non-contributory Hypertension Denies family history of Ovarian cancer Myocardial infarction Colorectal cancer Social History Smoking Status: Never smoker Do You Dip or Chew Tobacco: Yes; Hx Alcohol Use: Yes Hx Substance Use: No Preferred Language: Polish Communication Ability: Effective Physical Therapist Required: No Beliefs That Will Affect Care: None marital status: Single Current Living Situation: Family Current Living Situation Comment: lives with son current occupational status: employed Other Information That Helps Us Care for You: No Feels Safe at Home: Yes Safety Concerns: Feels Safe At This Time Dental Care, Regularly: Yes Seatbelt Use: sometimes Assistive Devices: None Review of Systems Review of Systems: The patient denies chest pain, palpitations, shortness of breath, dyspnea on exertion, cough, lower extremity swelling, sore throat, fevers, chills, sweats, nausea, vomiting, diarrhea , constipation, abdominal pain, pelvic pain, blood in urine or stool, dysuria, urinary frequency or urgency, memory loss, loss of consciousness, rash, abnormal bruising or bleeding, focal weakness, numbness or tingling in arms or legs, generalized arthralgias or myalgias, back or neck pain, or night sweats. The review of systems is otherwise negative other than for that already noted above, and at least 10 systems have been reviewed. Physical Exam Physical Exam: The patient is awake, alert and oriented 3, well developed and well nourished, normocephalic and atraumatic, lying in bed and in no acute distress. HEENT--PERRL, EOMI, mucous membranes and oropharynx dry. Neck--supple. No JVD. No bruits. Thyroid normal, trachea midline, no adenopathy. Heart--normal S1 and S2. No murmurs, rubs or gallops. Lungs--clear bilaterally, no respiratory distress, no accessory muscle use. Abdomen--normal bowel sounds and soft. Nontender. Nondistended. Morbidly obese Extremities-- No edema. There are good distal pulses b/l. Dermatologic--normal skin turgor, normal color, no abnormal lymph nodes, no rash. Neurologic--cranial nerves II through XII grossly intact. Rheumatologic--normal range of motion, but slow Psychiatric--normal affect. Results & Data Results & Data Vital Signs (Past 12 Hours) Vital Signs Temp Pulse Pulse Resp BP BP Pulse Ox 08/10/23 22:30 80 18 151/103 H 100 08/10/23 22:21 90 20 155/97 H 98 08/10/23 22:10 76 20 174/105 H 98 08/10/23 22:05 89 08/10/23 21:48 36.9 C 73 18 145/102 H 99 O2 Del Method 08/10/23 22:30 08/10/23 22:21 08/10/23 22:10 Room Air 08/10/23 22:05 08/10/23 21:48 Room Air Laboratory Results Laboratory Results WBC 10.61 K/ul (4.8-10.8) 08/10/23 20:01 RBC 5.37 M/uL (4.70-6.10) 08/10/23 20:01 Hgb 16.2 g/dl (14.0-18.0) 08/10/23 20:01 POC Hgb 15.6 g/dl (14.0-18.0) 08/10/23 22:06 Hct 46.6 % (42.0-52.0) 08/10/23 20: POC Hct 46 % (42-52) 08/10/23 22:06 MCV 86.8 fL (80.0-100.0) 08/10/23 20: MCH 30.2 pg (25.0-34.0) 08/10/23 20: MCHC 34.8 g/dL (32.0-36.0) 08/10/23 20: RDW Std Deviation 38.5 fL (36.4-46.3) 08/10/23 20: RDW Coeff of Jim 12.3 % (11.5-14.5) 08/10/23 20: Plt Count 257 K/uL (130-400) 08/10/23 20: MPV 9.5 fL (9.4-12.4) 08/10/23 20: Immature Gran % (Auto) 0.3 % 08/10/23 20: Neut % (Auto) 50.4 % 08/10/23 20: Lymph % (Auto) 39.1 % 08/10/23 20: [place] % (Auto) 8.6 % 08/10/23 20: Eos % (Auto) 1.2 % 08/10/23 20: Baso % (Auto) 0.4 % 08/10/23 20: Neut # (Auto) 5.35 K/uL (1.40-6.50) 08/10/23 20: Lymph # (Auto) 4.15 K/uL (1.20-3.40) H 08/10/23 20:01 [place] # (Auto) 0.91 K/uL (0.11-0.59) H 08/10/23 20: Eos # (Auto) 0.13 K/uL (0.00-0.50) 08/10/23 20: Baso # (Auto) 0.04 K/uL (0.00-0.20) 08/10/23 20: Immature Gran # (Auto) 0.03 K/uL (0.01-0.20) 08/10/23 20:01 PT 10.1 Seconds (9.0-12.0) 08/10/23 20:01 INR 0.9 (0.9-1.1) 08/10/23 20:01 APTT 27 Seconds (21-31) 08/10/23 20:01 PTT Ratio 1.0 08/10/23 20:01 POC Sodium 142 mmol/L (135-144) 08/10/23 22:06 Sodium 140 mmol/L (136-145) 08/10/23 20:01 POC Potassium 3.3 mmol/L (3.3-5.0) 08/10/23 22:06 Potassium 3.4 mmol/L (3.5-5.1) L 08/10/23 20:01 POC Chloride 105 mmol/L (101-112) 08/10/23 22:06 Chloride 105 mmol/L (98-107) 08/10/23 20:01 Carbon Dioxide 26 mmol/L (21-32) 08/10/23 20:01 POC Total CO2 25 mmol/L (24-31) 08/10/23 22:06 Anion Gap 9 (3-11) 08/10/23 20:01 POC Anion Gap 16.0 mmol/L (16-25) 08/10/23 22:06 POC BUN 19 mg/dl (7-18) H 08/10/23 22:06 BUN 18 mg/dl (6-23) 08/10/23 20:01 Creatinine 1.03 mg/dl (0.6-1.4) 08/10/23 20:01 POC Creatinine 1.0 mg/dl (0.6-1.3) 08/10/23 22:06 Est Cr Clr Drug Dosing 147.8 ml/min 08/10/23 20:01 Est GFR ( Amer) 108.6 ml/min 08/10/23 20:01 Est GFR (Non-Af Amer) 93.7 ml/min 08/10/23 20:01 BUN/Creatinine Ratio 17.5 (10-20) 08/10/23 20:01 Glucose 74 mg/dl (70-99(Fasting)) 08/10/23 20:01 POC Glucose 75 mg/dl (70-99) 08/10/23 21:58 POC Glucose (other) 78 mg/dl (70-99) 05/17/24 22:06 Calcium 9.4 mg/dl (8.6-10.3) 08/10/23 20:01 POC Ioniz Calcium Amanda 1.17 mmol/l (1.12-1.32) 08/10/23 22:06 Magnesium 2.2 mg/dl (1.7-2.4) 08/10/23 20:01 Total Bilirubin 0.6 mg/dl (0.2-1.0) 08/10/23 20:01 AST 18 U/L (13-39) 08/10/23 20:01 ALT 23 U/L (7-52) 08/10/23 20:01 Alkaline Phosphatase 59 U/L (34-104) 08/10/23 20:01 Troponin I High Sens 3.5 pg/ml (0-20) 08/10/23 20:01 Total Protein 7.5 gm/dl (6.0-8.3) 08/10/23 20:01 Albumin 4.6 gm/dl (3.4-5.0) 08/10/23 20:01 Globulin 2.9 gm/dl (2.5-4.0) 08/10/23 20:01 Albumin/Globulin Ratio 1.6 (0.9-2) 08/10/23 20:[address] 08/10/23 22:03 CR Exam(s): CT HEAD Without Contrast EXAM: CT Head Without Intravenous Contrast CLINICAL HISTORY: Reason for exam: neuro deficit, acute stroke suspected. TECHNIQUE: Axial computed tomography images of the head/brain without intravenous contrast. CTDI is 64.12 mGy and DLP is 1611.73 mGy-cm. Automated exposure control was utilized for the study. A dose lowering technique was utilized adhering to the principles of ALARA. COMPARISON: No relevant prior studies available. FINDINGS: Brain: Unremarkable. No hemorrhage. No significant white matter disease. No edema. Ventricles: Unremarkable. No ventriculomegaly. Bones/joints: Unremarkable. No acute fracture. Soft tissues: Unremarkable. Sinuses: Unremarkable as visualized. No acute sinusitis. Mastoid air cells: Unremarkable as visualized. No mastoid effusion. IMPRESSION: Normal head/brain CT. Communications: Call Doctor Stroke Electronically signed by: Baljit Kohli MD 08/10/23 22:33 PM Head CTA 08/10/23 22:03 CR Exam(s): CTA HEAD With Contrast IV Amt: 117ml optiray 320 EXAM: CT Angiography Head With Intravenous Contrast CLINICAL HISTORY: Reason for exam: neuro deficit, acute stroke suspected. TECHNIQUE: Axial computed tomographic angiography images of the head with intravenous contrast. CTDI is 64.12 mGy and DLP is 1611.73 mGy-cm. Automated exposure control was utilized for the study. A dose lowering technique was utilized adhering to the principles of ALARA. MIP reconstructed images were created and reviewed. CONTRAST: Patient received 117ml optiray 320 of IV contrast COMPARISON: No relevant prior studies available. FINDINGS: Right internal carotid artery: No acute findings. Intracranial segment is patent with no significant stenosis. No aneurysm. Right anterior cerebral artery: Unremarkable. No occlusion or significant stenosis. No aneurysm. Right middle cerebral artery: Unremarkable. No occlusion or significant stenosis. No aneurysm. Right posterior cerebral artery: Unremarkable. No occlusion or significant stenosis. No aneurysm. Right vertebral artery: Unremarkable as visualized. Left internal carotid artery: No acute findings. Intracranial segment is patent with no significant stenosis. No aneurysm. Left anterior cerebral artery: Unremarkable. No occlusion or significant stenosis. No aneurysm. Left middle cerebral artery: Unremarkable. No occlusion or significant stenosis. No aneurysm. Left posterior cerebral artery: Unremarkable. No occlusion or significant stenosis. No aneurysm. Left vertebral artery: Unremarkable as visualized. Basilar artery: Unremarkable. No occlusion or significant stenosis. No aneurysm. IMPRESSION: Normal head CTA. Communications: 08/10/23 22:39 Call Doctor Regarding Stroke, called Dr. Callahan on 08/09 22: 40 (-04:00) Electronically signed by: Baljit Kohli MD 08/10/23 22:38 PM Neck CTA 08/10/23 22:03 CR Exam(s): CTA NECK With Contrast IV Amt: 117ml optiray 320 EXAM: CT Angiography Neck With Intravenous Contrast CLINICAL HISTORY: Reason for exam: neuro deficit, acute stroke suspected. TECHNIQUE: Routine carotid CT angiography protocol was performed with intravenous contrast. NASCET criteria using the distal ICAs for comparison were used for evaluation of stenoses. CTDI is 64.12 mGy and DLP is 1611.73 mGy-cm. Automated exposure control was utilized for the study. A dose lowering technique was utilized adhering to the principles of ALARA. MIP reconstructed images were created and reviewed. CONTRAST: Patient received 117ml optiray 320 of IV contrast COMPARISON: None. FINDINGS: VASCULATURE: Right common carotid artery: Unremarkable. No occlusion or significant stenosis. No dissection. Right internal carotid artery: Unremarkable. Extracranial segment is patent with no occlusion or significant stenosis. No dissection. Right external carotid artery: Unremarkable. No occlusion. Right vertebral artery: Unremarkable. No occlusion or significant stenosis. No dissection. Left common carotid artery: Unremarkable. No occlusion or significant stenosis. No dissection. Left internal carotid artery: Left internal carotid has a tortuous course in the neck. Extracranial segment is patent with no occlusion or significant stenosis. No dissection. Left external carotid artery: Unremarkable. No occlusion. Left vertebral artery: Unremarkable. No occlusion or significant stenosis. No dissection. NECK: Bones/joints: Unremarkable. No acute fracture. Soft tissues: Unremarkable. Sinuses: Mucous retention cysts are seen in the maxillary sinuses. Lung apices: Clear. CAROTID STENOSIS REFERENCE USING NASCET CRITERIA: % ICA stenosis = (1 - narrowest ICA diameter/diameter of distal cervical ICA) x 100. Mild - <50% stenosis. Moderate - 50-69% stenosis. Severe - 70-94% stenosis. Near occlusion - 95-99% stenosis. Occluded - 100% stenosis. IMPRESSION: No evidence of hemodynamically significant carotid stenosis. Communications: Call Doctor Stroke Electronically signed by: Baljit Kohli MD 08/10/23 22:41 PM Code Status & VTE Plan Code Status Full code VTE Prophylaxis Plan VTE Prophylaxis will be ordered: Yes PG Care Time/CCT Total # of Minutes Spent Total Time Spent with Patient: Total time spent is greater than 50% in coordination of care (as documented) at patient's floor/unit and/or counseling patient: Coding Level of Care Code 57394 INT INP/OBS CARE 3/75MIN Diagnoses Generalized weakness R53.1 Fatigue R53.83 Headache R51 Common migraine without aura G43.009
[2023-08-11] MEDS ORDERED: ACETAMINOPHEN 1000 MG/100 ML IV IV PRN (01:01)
[2023-08-11] MEDS ORDERED: ONDANSETRON INJ 2 MG/ML 2 ML VIAL IV PRN (01:01)
[2023-08-11] MEDS ORDERED: PHARMACIST DISCHARGE MED REC CONSULT PRN (01:01)
[2023-08-11] MEDS ORDERED: ACETAMINOPHEN 1,000 MG/100 ML VIAL IV PRN (01:15)
[2023-08-11] MEDS: D5NSS + 20MEQ KCL 20 MEQ/1,000 ML BAG IV SCH (02:18)
[2023-08-11 02:35] LABS: Amphetamines+Metham, Urine Neg (Neg); Barbiturates, Urine Neg (Neg); Benzodiazepine, Urine Neg (Neg); Cocaine, Urine Neg (Neg); MDMA (Ecstacy), Urine Neg (Neg); Marijuana, Urine Neg (Neg); Methadone, Urine Neg (Neg); Opiate, Urine Neg (Neg); Phencyclidine, Urine Neg (Neg)
--- NOTE | 2023-08-11 03:05 | Magnetic Resonance Report ---
Exam(s): MRI HEAD Without Contrast EXAM: MR Head Without Intravenous Contrast CLINICAL HISTORY: Reason for exam: stroke-like symptoms. TECHNIQUE: Magnetic resonance images of the head/brain without intravenous contrast in multiple planes. COMPARISON: Comparison made to prior head CT from August 10, 2023. FINDINGS: Brain: Minimal nonspecific white matter changes. The flow voids at the base of the brain are intact. No mass. No hemorrhage. No acute infarct. No evidence of mesial temporal sclerosis, heterotopic hunt matter or cortical dysplasia. Ventricles: Unremarkable. No ventriculomegaly. Bones/joints: Unremarkable. No acute fracture. Sinuses: Chronic maxillary and ethmoid sinusitis. No acute sinusitis. Mastoid air cells: Unremarkable as visualized. No mastoid effusion. Orbits: Unremarkable as visualized. IMPRESSION: No evidence of acute intracranial pathology. Electronically signed by: Sasha Rothman MD 08/11/23 03:04 AM
[2023-08-11 06:47] LABS: Albumin Level 4.1 gm/dl (3.4-5.0); BUN Creatinine Ratio 26.3 (10-20); Calcium 8.7 mg/dl (8.6-10.3); Chol HDL Ratio 5.5 (0-5); Creatinine Clr Calc Pharmacy 200.4 ml/min; Est GFR (Non-African American) 118.2 ml/min; Magnesium 2.3 mg/dl (1.7-2.4); Phosphorus 4.8 mg/dl (2.5-4.9); Potassium 4.1 mmol/L (3.5-5.1)
[2023-08-11 06:54] LABS: Troponin I High Sensitivity 3.1 pg/ml (0-20)
[2023-08-11 07:08] LABS: Basophils # (auto) 0.03 K/uL (0.00-0.20); Basophils % (auto) 0.3 %; Eosinophils # (auto) 0.08 K/uL (0.00-0.50); Eosinophils % (auto) 0.9 %; Hematocrit (blood only) 41.9 % (42.0-52.0); Hemoglobin 14.1 g/dl (14.0-18.0); Immature Granulocytes # (auto) 0.03 K/uL (0.01-0.20); Immature Granulocytes % (auto) 0.3 %; Lymphocytes # (auto) 3.24 K/uL (1.20-3.40); Lymphocytes % (auto) 37.4 %; Mean Corpuscular Hemoglobin 29.4 pg (25.0-34.0); Mean Corpuscular Hgb Conc 33.7 g/dL (32.0-36.0); Mean Corpuscular Volume 87.5 fL (80.0-100.0); Mean Platelet Volume 9.8 fL (9.4-12.4); Monocytes # (auto) 0.68 K/uL (0.11-0.59); Monocytes % (auto) 7.8 %; Neutrophils # (auto) 4.61 K/uL (1.40-6.50); Neutrophils % (auto) 53.3 %; Platelet Count 235 K/uL (130-400); RDW Coefficient of Variation 12.3 % (11.5-14.5); RDW Standard Deviation 39.6 fL (36.4-46.3); Red Blood Count 4.79 M/uL (4.70-6.10); White Blood Count 8.67 K/ul (4.8-10.8)
[2023-08-11 07:33] LABS: Estimated Average Glucose 103 mg/dl; Hemoglobin A1C 5.2 % (4.5-5.6)
--- NOTE | 2023-08-11 07:35 | XRay Report ---
XR chest 1V portable HISTORY: 33 years-old Male neuro deficit, acute stroke suspected COMPARISON: 10/29/2017 TECHNIQUE: AP view of the chest FINDINGS: Cardiac silhouette is enlarged. No pneumothorax, pleural effusion, airspace consolidation or pulmonar y edema. The bones of the chest appear grossly intact. IMPRESSION: Cardiomegaly without acute process. ACT 112: Negative or not required by law. The above report was generated using voice recognition software. It may contain grammatical, syntax o r spelling errors. Electronically signed by: Duc Sullivan M.D. 08/11/2023 7:33 AM
--- NOTE | 2023-08-11 09:14 | Discharge Summary ---
Date of Service August 11, 2023 Admission HPI Per Admitting Provider The patient is a 33-year-old male with a past medical history including GERD, anxiety, obesity, TONYA, seizure disorder, migraines, daytime hypersomnolence and chronic migraine without aura. 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 While in the emergency department, the patient appeared very lethargic, his conversation was slow, and find it difficult to keep his eyes open, complaining of a significant generalized headache. He de nies any focal weakness or legs, reported he felt numb and weak all over. He denies any recent travels or sick exposures. He has never had anything last this length of time in the past Admission Exam Per Admitting Provider The patient is awake, alert and oriented 3, well developed and well nourished, normocephalic and atraumatic, lying in bed and in no acute distress. HEENT--PERRL, EOMI, mucous membranes and oropharynx dry. Neck--supple. No JVD. No bruits. Thyroid normal, trachea midline, no adenopathy. Heart--normal S1 and S2. No murmurs, rubs or gallops. Lungs--clear bilaterally, no respiratory distress, no accessory muscle use. Abdomen--normal bowel sounds and soft. Nontender. Nondistended. Morbidly obese Extremities-- No edema. There are good distal pulses b/l. Dermatologic--normal skin turgor, normal color, no abnormal lymph nodes, no rash. Neurologic--cranial nerves II through XII grossly intact. Rheumatologic--normal range of motion, but slow Psychiatric--normal affect. Principal Diagnosis Complex migraine Discharge Exam General: well-appearing, no acute distress HEENT: conjunctivae clear without injection, anicteric sclerae, moist mucous membranes Neck: trachea midline CV: RRR, normal S1 and S2, no murmurs Resp: CTAB, no increased work of breathing, no crackles or wheezes Neuro: AOx3, no focal motor or sensory deficits Skin: no rashes or lesions, warm and dry Discharge Data Allergies Allergy/AdvReac Type Severity Reaction Status Date / Time No Known Allergies Allergy Verified 08/10/23 23:44 Consultations 08/10/23 23:04 ED Decision to Admit Stat Ordered Studies 08/10/23 22:03 CT angio head w con Stat CT angio neck with con Stat CT head/brain wo con Stat 08/11/23 01:18 MR brain wo con Stat Hospital Course (1) Headache: (2) Vertigo: (3) Stroke-like symptoms: (4) Generalized weakness: Plan Pt admitted for sudden onset generalized weakness, lethargy, numbness and headache -Head CT, head/neck CTA, brain MRI negative -EKG NSR, TTE negative -Troponin negative, A1C and lipid panel wnl -No lab abnormalities on admission aside from mild hypoglycemia at 74 and mild hypokalemia at 3.4 -No abnormalities on telemetry -Suspect pt's symptoms were most likely due to complex/hemiplegic migraine given negative workup otherwise -Recommend further evaluation outpatient with EEG + cardiac monitoring, deferring to PCP Total Time Total Time Spent Total Time Spent (In Minutes): 40 Discharge Plan Discharge Items Patient Disposition: Home - Self-Care Reason For Visit: STROKE-LIKE SYMPTOMS Discharge Diagnosis: Complex migraine Activity: Resume your previous activity Non-emergency contact: Primary Care Provider Call non-emergency contact if: your symptoms worsen Follow-up/Referrals: Sarahi Mcadams MD [Primary Care Provider] - 08/24/23 10:30 am (Hospital f/u scheduled August 23 at 10:30 with Emilee Stephens) Diet: Regular Addtl Attending Provider Instructions: You were admitted to the hospital for sudden weakness. This is was most likely due to a complex migraine since the rest of your workup was normal. A discharge summary will be sent to your primary care physician to ensure continuity of care. Please bring this discharge summary with you to your next office appointment so that your provider can review it at that time. Follow-up appointments: - Make a follow-up appointment with your PCP within the next week. It is very important that you follow up with them shortly after discharge from the hospital. Medications: Your medication list has been reviewed and reconciled upon discharge to ensure accuracy and continuity of care. An updated list of all your medications is included with your hospital discharge paperwork. Please review this list closely. Take your medications as instructed; do not skip a dose of your medicines. Make sure all of your doctors know every medicine you are taking (including tipg-vyb-trcemlb medicines, vitamins, and supplements). Call your primary care provider before taking any new medicines (including htme-eht-yekgnvl medicines, vitamins, and supplements), because some of these may interact with your current medications, or may make your symptoms worse. Tell your primary care provider if you cannot afford your medications. CALL 911 OR GO TO THE EMERGENCY DEPARTMENT if you experience any of the following: - Sudden, severe abdominal pain or nausea/vomiting - Severe chest pain, or chest pain that radiates (moves) to your jaw or arm - Sudden, severe shortness of breath or difficulty breathing Thank you for allowing us to participate in your care Pending Studies at Discharge: No Stand-Alone Forms: My [email or web address] Medications and DC Order Prescriptions: Continued ibuprofen 200 mg Tablet 400 - 600 mg PO DIRECTED PRN (Reason: Pain) Discharge Orders: Discharge Order (Routine); Ordered 08/11/23 Ordered By: Sharri Clarke/Other Patient Handouts: The First Few Hours After a Stroke, What Is Aphasia?, Symptoms of Stroke, What Is a TIA?, Stroke Prevention Eating Healthy, Stroke Stop Another Health Tips Admission Data Admit Date/Time: 08/10/23 23:50 Attending Provider: Lazaro Lawrence Admit Provider: Kory Kang Primary Care Provider: Sarahi Mcadams Other Providers: Kory Kang Other Interventions: Discharge Summary Assessment (RN) Last Done: 08/11/23 13:03 Supervising Physician Co-Signing Physician Notes Attending attestation Pt seen and examined in concert with Dr. Morgan. In agreement with the documented findings as noted in the resident documentation with any exceptions or additions as noted here. No further episodes of weakness or headache symptoms since presentation. On further review of history, does occur to some level of severity on a monthly basis with his migraines, not normally this severe, though had not eaten well day of presentation. On examination, S1/S2 nl RRR no MCG. CTAB. Abd NT/ND BS+ve, CNII-XII grossly intact as tested. Sudden onset weakness in the setting of migraine history - evaluation for acute cause without apparent etiology as above. After discussion of potential etiology and further w/u, patient will discharge to home and outpatient follow up with recommendation for event monitoring, EEG/neuro evaluation, consideration of headache prophylaxis and precautions re: avoidance of episodes and response in the future. Else see resident documentation as noted. Total attending physician time spent with this patient's care on the day of discharge: 33 minutes.
--- NOTE | 2023-08-11 10:42 | Electrocardiogram Report ---
Test Reason : Blood Pressure : / mmHG Vent. Rate : 069 BPM Atrial Rate : 069 BPM P-R Int : 140 ms QRS Dur : 114 ms QT Int : 402 ms P-R-T Axes : 024 022 019 degrees QTc Int : 430 ms Normal sinus rhythm Incomplete right bundle branch block Borderline ECG When compared with ECG of 13-JAN-2021 03:56, Incomplete right bundle branch block is now Present Confirmed by Zeke Hanna ([id number]) on 08/11/2023 10:41:56 AM Referred By: REFERRED SELF Confirmed By:Zeke Hanna
[2023-08-11] MEDS: PANTOprazole 40 MG in SYRINGE 0 ML IV SCH (11:08)
[2023-08-11] MEDS ORDERED: STROKE PATIENT DISCHARGE STA (12:54)
== END 2023-08-11 13:59 | disposition home or self-care (01) ==
LOC: 4W 21:45 → ED 21:45 → SUATTDRO 23:50 → 4W 08-11 00:44